=== PATIENT | female | born 1965 ===

== ENCOUNTER → 2018-06-30 | Outpatient (CLI) | payer OTHER ==
[~2018-06-30] MED LIST: CEFTIN500 MG PO; FLONASE16 G1 NS
== END | disposition home or self-care (01) ==
LOC: SONOGRAMA 10:22 → MAMO-SONO 11:15
DX: E04.1 Nontoxic single thyroid nodule (principal)

== ENCOUNTER 2019-01-11 07:47 | Outpatient (CLI) | payer OTHER | END 2019-01-11 08:07 | disposition home or self-care (01) | LOC: NUCLEAR 07:47 | DX: M06.09 Rheumatoid arthritis without rheumatoid factor, multiple sites (principal); M13.0 Polyarthritis, unspecified | CPT/HCPCS: 78315; A9503 ==

== ENCOUNTER 2019-03-02 15:30 | Outpatient (CLI) | payer OTHER | END 2019-03-02 15:34 | disposition home or self-care (01) | LOC: RAD 15:30 | DX: S83.92XA Sprain of unspecified site of left knee, initial encounter (principal) ==

== ENCOUNTER 2024-11-16 10:39 | Outpatient (CLI) | payer OTHER | END 2024-11-16 10:46 | disposition home or self-care (01) | LOC: RAD 10:39 | PROVIDERS: ATTEND Physical Medicine & Rehabilitation | DX: M54.59 Other low back pain (principal); M25.561 Pain in right knee; M25.562 Pain in left knee ==